=== PATIENT | female | born 1985 | race Caucasian/White ===

== ENCOUNTER 2019-11-25 11:13 | Outpatient (CLI) | payer OTHER, SELFPAY ==
--- NOTE | 2019-11-25 11:30 | XR_ITS ---
WS: [id number] LEFT KNEE: 3 VIEW(S) TECHNIQUE: AP, oblique(s) and lateral. HISTORY: KNEE INJURY, LEFT COMPARISON: None available. No fracture or dislocation. No joint space narrowing or osteophytes. No joint effusion. No soft tissue abnormality. XR/XR knee LT 3V* [id number] IMPRESSION: Normal LEFT knee.
--- NOTE | 2019-11-25 11:30 | XR_ITS ---
WS: [id number] LEFT HAND: 3 VIEW(S) TECHNIQUE: PA, oblique and lateral. HISTORY: HAND PAIN, LEFT COMPARISON: None available. No acute fracture or dislocation. No soft tissue or bone abnormality. XR/XR hand LT min 3V* [id number] IMPRESSION: Normal LEFT hand.
== END 2019-11-25 11:14 | disposition home or self-care (01) ==
LOC: RADWPI 11:23
PROVIDERS: Family Provider Family Medicine; PCP Family Medicine; Visit Provider Nurse Practitioner Family
DX: M79.642 Pain in left hand (principal); S89.92XA Unspecified injury of left lower leg, initial encounter; X58.XXXA Exposure to other specified factors, initial encounter
CPT/HCPCS: 73130; 73562

== ENCOUNTER 2020-05-21 10:17 | Outpatient (CLI) | payer OTHER, SELFPAY ==
--- NOTE | 2020-05-21 10:25 | US_ITS ---
WS: [id number] EARLY OBSTETRICAL ULTRASOUND (<14 WEEKS). HISTORY: SUPERVISION NORMAL COMPARISON: None available. Single intrauterine gestational sac is identified. Cardiac activity at 72 BPM. [place]-rump length juliet ures 0.6 cm which corresponds to a gestation of 6w3d. Normal-appearing yolk sac and amnion demonstrat ed. Very small subchorionic hemorrhage adjacent to the gestational sac measures 3.5 x 3.3 x 1.3 cm. No free fluid. Both ovaries are identified. LEFT ovary contains 2 cysts. The largest cyst is 2.1 x 1.8 x 1.7 cm. Nor mal vascularity within each ovary. There is a collapsing corpus luteum also noted within the LEFT ova ry with echogenic borders. US/US OB <=14 wk fetus w transvag IMPRESSION: 1. Single intrauterine gestation of 6 weeks 3 days with an EDC of 01/11/2021. 2. Low cardiac activity. Heart rate is lower than normal expected for this ear ly gestational age. 3. LEFT ovarian cyst. Next a small subchorionic hemorrhage.
== END 2020-05-21 10:18 | disposition home or self-care (01) ==
LOC: RAD 10:22
PROVIDERS: PCP Family Medicine; Visit Provider Family Medicine
DX: Z34.91 Encounter for supervision of normal pregnancy, unspecified, first trimester (principal); Z3A.01 Less than 8 weeks gestation of pregnancy; N83.202 Unspecified ovarian cyst, left side
CPT/HCPCS: 76801; 76817

== ENCOUNTER 2020-06-09 13:58 | Outpatient (CLI) | payer OTHER, SELFPAY ==
--- NOTE | 2020-06-09 14:05 | US_ITS ---
WS: [id number] ULTRASOUND EARLY TECHNIQUE: Transabdominal sonography of the pelvis was performed. Followed by transvaginal sonography to better evaluate the uterus and ovaries. CLINICAL INFORMATION: FIRST TRIMESTER VAGINAL BLEEDING LMP: 04/06/2020 Beta hCG: Unknown. COMPARISON: May 21, 2020 FINDINGS: Cervix measures 3.3 cm UTERUS AND GESTATIONAL SAC Intrauterine gestations: Intrauterine gestation with no detectable cardiac activity. Estimated gestational age: 6w0d Estimated delivery February 02, 2021 Yolk sac: 0.2 cm. [place] rump length (CRL): 0.3 cm. heart motion: 0 BPM. Subchorionic hemorrhage: Present OVARIES Echogenic structure between the uterus and fallopian tube measuring 1.4 x 1.0 x 1.1 cm nonspecific bu t may represent ectopic . Anechoic center. Recommend correlation beta-hCG. Associated Periph eral vascularity. Hypoechoic lesion left ovary likely complex cyst measuring 1.2 x 1.1 x 0.7 cm FREE FLUID None. US/US OB <=14 wk fetus w transvag IMPRESSION: 1. Intrauterine gestation. No cardiac activity. Findings suspicious for demise. 2. Discrepancy between the gestational sac and pole measurements also esposito spicious for demise. Recommend interval follow-up. 3. Subchorionic hemorrhage measuring 1.7 x 0.5 x 0.8 cm 4. Hypoechoic lesion left ovary likely complex cyst measuring 1.2 x 1.1 x 0.7 cm 5. Echogenic structure between the uterus and fallopian tube measuring 1.4 x 1 .0 x 1.1 cm with anechoic center. Nonspecific but may represent ectopic pregnan cy. Recommend correlation beta-hCG. Associated Peripheral vascularity.
== END 2020-06-09 13:59 | disposition home or self-care (01) ==
LOC: RAD 14:01
PROVIDERS: PCP Family Medicine; Visit Provider Family Medicine
DX: O46.91 Antepartum hemorrhage, unspecified, first trimester (principal); N83.8 Other noninflammatory disorders of ovary, fallopian tube and broad ligament
CPT/HCPCS: 76801; 76817

== ENCOUNTER → 2022-03-17 08:16 | Outpatient (BNVA) | payer OTHER, SELFPAY | PROVIDERS: PCP Family Medicine; Visit Provider Family Medicine | DX: Z00.00 Encounter for general adult medical examination without abnormal findings (principal); R00.2 Palpitations; Z86.39 Personal history of other endocrine, nutritional and metabolic disease; Z51.81 Encounter for therapeutic drug level monitoring; Z13.220 Encounter for screening for lipoid disorders | CPT/HCPCS: 80053; 80061; 83540; 84439; 84443; 85025 ==

== ENCOUNTER → 2024-01-31 10:48 | Outpatient (BNVA) | payer OTHER, SELFPAY | PROVIDERS: PCP Family Medicine; Visit Provider Family Medicine | DX: Z51.81 Encounter for therapeutic drug level monitoring (principal); Z00.00 Encounter for general adult medical examination without abnormal findings; Z13.220 Encounter for screening for lipoid disorders; E53.8 Deficiency of other specified B group vitamins | CPT/HCPCS: 80053; 80061; 82306; 82607; 84439; 84443; 85025 ==

== ENCOUNTER → 2024-10-15 16:17 | Outpatient (BNVA) | payer OTHER, SELFPAY | PROVIDERS: PCP Family Medicine; Visit Provider Family Medicine | DX: Z00.00 Encounter for general adult medical examination without abnormal findings (principal) | CPT/HCPCS: 87624 ==